=== PATIENT | female | born 1990 | race Caucasian/White ===

== ENCOUNTER 2016-12-18 19:15 | Outpatient (CLI) | payer MEDICAID ==
[2017-01-31] MEDS ORDERED: MOTRIN-DPS800 MG PO (15:47)
[2017-01-31] MEDS ORDERED: TYLENOL #3 DPS1 TAB PO (15:47)
== END 2016-12-18 22:55 | disposition home or self-care (01) ==
LOC: 2LDRP 19:15 → BC 19:15
DX: O41.93X0 Disorder of amniotic fluid and membranes, unspecified, third trimester, not applicable or unspecified (principal); O99.89 Other specified diseases and conditions complicating pregnancy, childbirth and the puerperium; R10.9 Unspecified abdominal pain; Z3A.34 34 weeks gestation of pregnancy

== ENCOUNTER 2016-12-24 18:00 | Outpatient (CLI) | payer MEDICAID ==
[2017-01-31] MEDS ORDERED: TYLENOL #3 DPS1 TAB PO (15:47)
[2017-01-31] MEDS ORDERED: MOTRIN-DPS800 MG PO (15:47)
== END 2016-12-24 19:50 | disposition home or self-care (01) ==
LOC: BC 18:00 → 2LDRP 18:00 → BC 19:50
DX: O99.89 Other specified diseases and conditions complicating pregnancy, childbirth and the puerperium (principal); M54.5 Low back pain; R10.2 Pelvic and perineal pain; Z3A.35 35 weeks gestation of pregnancy

== ENCOUNTER 2017-01-01 18:00 | Outpatient (CLI) | payer MEDICAID ==
[2017-01-31] MEDS ORDERED: MOTRIN-DPS800 MG PO (15:47)
[2017-01-31] MEDS ORDERED: TYLENOL #3 DPS1 TAB PO (15:47)
== END 2017-01-01 19:10 | disposition home or self-care (01) ==
LOC: 2LDRP 18:00 → WOR 18:00 → BC 18:00 → 2LDRP 19:10
DX: O47.03 False labor before 37 completed weeks of gestation, third trimester (principal); Z3A.36 36 weeks gestation of pregnancy

== ENCOUNTER 2017-01-20 20:07 | Inpatient (IN) | payer MEDICAID ==
[~2017-01-20] VITALS: Ht 165.1 cm; Wt 95.7 kg
[2017-01-31] MEDS ORDERED: MOTRIN-DPS800 MG PO (15:47)
[2017-01-31] MEDS ORDERED: TYLENOL #3 DPS1 TAB PO (15:47)
--- NOTE | 2017-02-07 08:42 | HP ---
ADMIT: 01/21/2017 RM/LOC: 222 [facility] MR#: [id number] [address] [address] KALEB SANTIAGO [address] [place] [address] History and Physical SEX: F AGE: 26 : 1990 DATE OF SERVICE: REASON FOR ADMISSION: Contractions. HISTORY OF PRESENT ILLNESS: The patient is a 26-year-old, 3, para 2-0- 0-2, who presented to Labor and Delivery at 39-1/7th weeks' gestation by ultrasound with estimated confinement 01/26/2017. The patient's had been complicated by tobacco use in , obesity in , Rh negative status, and depression. At the time of admission, the patient complained of painful regular contractions. The patient denied any vaginal bleeding or loss of fluid. The patient was monitored for over 6 hours, it was initially felt that there was some cervical change, however, the patient received Fentanyl for pain control and contractions became very irregular, and no further cervical change was noted. For this reason, the patient will be dismissed to home. PAST MEDICAL HISTORY: Noncontributory. PAST SURGICAL HISTORY: Appendectomy at age 15. CURRENT MEDICATIONS: Tylenol as needed for pain. ALLERGIES: NO KNOWN MEDICAL ALLERGIES. FAMILY HISTORY: Sister with asthma and mother with history of DVT. SOCIAL HISTORY: The patient is . She denies any alcohol or drug use. She smokes 1/2 pack of cigarettes per day. PHYSICAL EXAMINATION: VITAL SIGNS: Blood pressure 120/68, pulse 94, temperature 98.5, respirations 20. GENERAL: The patient is alert and oriented, in no acute distress. HEART: Regular rate and rhythm without murmurs, gallops, or rubs. LUNGS: Clear to auscultation bilaterally. ABDOMEN: Soft, nontender, gravid. EXTREMITIES: Trace edema. No calf tenderness. ADMIT: 01/21/2017 RM/LOC: 222 [facility] MR#: [id number] [address] [address] KALEB SANTIAGO [address] [place] [address] History and Physical SEX: F AGE: 26 : 1990 heart tones are in the 130s with moderate variability and accelerations present. Contractions are now irregular. Cervix 3 cm dilated, 50% effaced, and -2 station. ASSESSMENT AND PLAN: 1. The patient is a 26-year-old 3, para 2-0-0-2, at 39-1/7th weeks gestation. 2. Threatened labor at term. The patient has had no cervical change and will be dismissed to home. 3. Tobacco use in . 4. Maternal obesity. 5. Rh negative status. Cass Boone MD/ elton JOB #: [id number] CC: Dasia Jhaveri MD, Attending Physician Dasia Jhaveri MD, Family Physician
== END 2017-01-21 07:00 | disposition home or self-care (01) | DRG 780 ==
LOC: 2LDRP 20:07 → BC 20:07 → 2LDRP 01-21 00:07
PROVIDERS: ADMIT Obstetrics & Gynecology
DX: O47.1 False labor at or after 37 completed weeks of gestation (principal); E66.9 Obesity, unspecified; F32.9 Major depressive disorder, single episode, unspecified; O99.213 Obesity complicating pregnancy, third trimester; O99.333 Smoking (tobacco) complicating pregnancy, third trimester; F17.210 Nicotine dependence, cigarettes, uncomplicated; O99.343 Other mental disorders complicating pregnancy, third trimester; O26.893 Other specified pregnancy related conditions, third trimester; Z90.49 Acquired absence of other specified parts of digestive tract; Z3A.39 39 weeks gestation of pregnancy

== ENCOUNTER 2017-01-22 20:25 | Outpatient (CLI) | payer MEDICAID ==
[2017-01-31] MEDS ORDERED: TYLENOL #3 DPS1 TAB PO (15:47)
[2017-01-31] MEDS ORDERED: MOTRIN-DPS800 MG PO (15:47)
== END 2017-01-22 23:29 | disposition home or self-care (01) ==
LOC: 2LDRP 20:25 → BC 20:25
DX: O47.1 False labor at or after 37 completed weeks of gestation (principal); Z3A.39 39 weeks gestation of pregnancy

== ENCOUNTER 2017-01-29 08:52 | Inpatient (IN) | payer MEDICAID ==
[2017-01-31] MEDS ORDERED: TYLENOL #3 DPS1 TAB PO (15:47)
[2017-01-31] MEDS ORDERED: MOTRIN-DPS800 MG PO (15:47)
== END 2017-01-30 14:45 | disposition home or self-care (01) | DRG 775 ==
DX: O48.0 Post-term pregnancy (principal); F17.210 Nicotine dependence, cigarettes, uncomplicated; O77.0 Labor and delivery complicated by meconium in amniotic fluid; O99.824 Streptococcus B carrier state complicating childbirth; O69.81X0 Labor and delivery complicated by cord around neck, without compression, not applicable or unspecified; O75.89 Other specified complications of labor and delivery; O99.334 Smoking (tobacco) complicating childbirth; O70.0 First degree perineal laceration during delivery; Z3A.40 40 weeks gestation of pregnancy; Z37.0 Single live birth

== ENCOUNTER 2017-02-04 16:33 | Emergency (ER) | payer MEDICAID ==
[~2017-02-04 16:33] MED LIST: MOTRIN-DPS800 MG PO; TYLENOL #3 DPS1 TAB PO
--- NOTE | 2017-02-10 16:08 | ER ---
ADMIT: 02/04/2017 RM/LOC: ER [facility] MR#: [id number] [address] [id number] KALEB SANTIAGO [address] [place] [address] Emergency Room Report SEX: F AGE: 26 : 1990 DATE: 02/04/2017 ADDENDUM: CHIEF COMPLAINT: Suprapubic pain. HISTORY OF PRESENT ILLNESS: This is a 26-year-old, who is about 6 days. She had a normal vaginal delivery without difficulties. She said she was doing fine up until 2 days ago, just started developing some pain in her lower abdomen and then worsened today. She did try to take an ibuprofen 800 mg prior to arrival, but this did not help at all. PAST MEDICAL HISTORY: Again, she is 6 days. She has 3 live births. She is 3, para 3. History of appendectomy. SOCIAL HISTORY: Denies any drug use, but does smoke a half pack of tobacco daily. Drinks alcohol occasionally. ALLERGIES: NO KNOWN ALLERGIES. MEDICATIONS: Ibuprofen again an hour prior to arrival. REVIEW OF SYSTEMS: CONSTITUTIONAL: Denies any fevers, chills, or sweats. CARDIOVASCULAR/RESPIRATORY: Denies any chest pain or shortness of breath. GI and : Denies any nausea, vomiting, or diarrhea. Her last bowel movement was 30 days prior to arrival. All systems otherwise negative. PHYSICAL EXAMINATION: VITAL SIGNS: Blood pressure is 150/86, pulse is 106, respirations 18, temperature is 98.5 tympanic, saturation of oxygen is 99% on room air. GENERAL APPEARANCE: She is in moderate distress. When I walked into the room, she is very tearful. HEENT: Pharynx is moist with no tonsillar swelling or exudate. HEART: Regular rate and rhythm. No murmurs, rubs, or gallops. LUNGS: CTA bilaterally. No wheezes, rales, or rhonchi. ABDOMEN: Nontender except for in the suprapubic region where she is actually very tender, has a little bit of rebound with it. COURSE IN THE EMERGENCY ROOM: Urine was collected. It showed 1+ protein, ADMIT: 02/04/2017 RM/LOC: ER [facility] MR#: [id number] [address] [address] KALEB SANTIAGO [address] [place] [address] Emergency Room Report SEX: F AGE: 26 : 1990 trace of blood. CBC is normal except for white count of 12.3, platelets of 412. Ultrasound showed some echogenic material and debris in the endometrial canal. I did speak with Dr. Boone regarding this patient. I read her the ultrasound report. She feels as if the patient is more than okay to go home at this time. If she does develop a fever, though she is to return to the emergency room. CLINICAL IMPRESSION: abdominal pain. DISPOSITION: Stable at discharge. I am prescribing her hydrocodone for pain and having her followup with Dr. Boone on Tuesday. I again told her to return to the ER if she develops any kind of fever. BRIANA Cunha / Teja Ortiz MD / modl JOB #: [id number] CC: Teja Ortiz MD, Attending Physician Cass Boone MD, Family Physician
== END 2017-02-04 18:50 | disposition home or self-care (01) ==
LOC: ER 16:33
DX: O90.89 Other complications of the puerperium, not elsewhere classified (principal); R10.9 Unspecified abdominal pain; O99.335 Smoking (tobacco) complicating the puerperium; Z98.890 Other specified postprocedural states; Z79.899 Other long term (current) drug therapy